=== PATIENT | female | born 1965 | race Caucasian/White ===

== ENCOUNTER 2025-03-08 06:16 | Day surgery (SDC) | payer OTHER, SELFPAY ==
[2025-03-08] VITALS (7 sets, daily range): BP systolic 93–142; BP diastolic 63–92; BMI 30.8
[2025-03-08 07:00] LABS: Hematocrit 38.2 % (37.0-47.0); Hemoglobin 12.5 g/dL (12.0-16.0); Mean Corp Hgb Conc. 32.7 g/dL (33.0-37.0); Mean Corpuscular Volume 85.7 fL (81.0-99.0); Platelet Count 264 10^3/uL (130-400); Red Cell Dist. Width 13.8 % (11.5-14.5)
[2025-03-08 07:08] LABS: Glucose - Point of Care 88 mg/dl (70-99)
--- NOTE | 2025-03-08 07:08 | W.SUR.PREOP ---
Pre-Operative Surgical Note
-
I have examined this patient prior to the performance of the scheduled procedure.
The patient's condition is unchanged from the time of the current History and
Physical and the patient is able to undergo the scheduled procedure.
[2025-03-08 07:17] LABS: INR 1.06; PT 14.3 Sec (11.4-14.6)
[2025-03-08] MEDS: NSS 500 IV (07:17)
[2025-03-08] MEDS: PERIDEX 0.12% ORAL RINSE 15 ML PO (07:17)
[2025-03-08] MEDS: BACTROBAN NASAL 1 GRAM NASAL (07:17)
[2025-03-08 07:18] LABS: APTT 26.1 Sec (23.4-35.0)
[2025-03-08 07:23] LABS: Blood Urea Nitrogen 28 mg/dl (7-17); Calcium 9.6 mg/dl (8.4-10.2); Carbon Dioxide 32 mmol/L (22-30); Chloride 103 mmol/L (98-107); Estimated Creatinine Clearance 56 ml/min; Glucose 97 mg/dl (70-99); Potassium 3.9 mmol/L (3.5-5.1); Sodium 137 mmol/L (135-145); eGFR > 60.00
--- NOTE | 2025-03-08 08:17 | OR.RPT ---
Operative Report
Operative Report
PROCEDURE DATE: 03/08/2025
Preoperative diagnosis: Temporal arteritis
Postoperative diagnosis: Same
Procedure: Bilateral superficial temporal artery biopsies.
Surgeon: Edwin
N[employer] Power [employer] Engineer: Letty, required for all aspects of procedure including assistance with traction/countertraction, assistance with closure.
Complications: None
Anesthesia: Local, sedation
Indications for procedure:
Concern for temporal arteritis. Referred for temporal artery biopsy. Risk/benefit/alternatives also discussed with the patient. She understood all wish to proceed.
Description of procedure:
Patient was identified brought to the operating room placed on the table in supine position. After the adequate administration of anesthesia and perioperative antibiotics she was prepped and draped in the standard surgical fashion. A standard
preoperative timeout was undertaken and everybody was in agreement the plan. A longitudinal incision was made in the scalp just anterior and superior to the superiormost aspect of the pinna of the right ear (overlying the palpable pulsation of the
artery) after infiltration of the skin and subcutaneous tissue with 1% lidocaine. This was carried down through the subcutaneous layer and the fascia layer with electrocautery. The superficial temporal artery was identified. It was mobilized
using sharp dissection. It was then ligated proximally and distally as well as a branch ligated all with silk ties and a clip (silk ties and clips for proximal/distal artery, and clip for branch). I then transected the artery. This was then sent
for specimen. No gross overt inflammation or thickening was noted in the artery.
A similar incision was made in the left scalp just anterior and superior to the superiormost aspect of the pinna of the left ear (overlying the palpable pulsation of the artery) after infiltration of the skin and subcutaneous tissue with 1%
lidocaine. Similarly this was carried down through the subcutaneous tissue and fascial layer with the electrocautery. The superficial temporal artery was identified and was mobilized using sharp dissection. It was then ligated proximally and
distally as well as a branch ligated all with silk ties and a clip (silk ties and clips for proximal/distal artery, and clip for branch). I then transected the artery. This was then sent for specimen. No gross overt inflammation or thickening was
noted in the artery.
Both incision sites were then irrigated. Hemostasis was achieved and confirmed. We then closed in layers using 3-0 Vicryl deep dermal layer followed by 4-0 Monocryl subcuticular running layer (this was completed bilaterally). Dermabond was then
applied bilaterally. Patient tolerated procedure well.
--- NOTE | 2025-03-08 08:18 | W.SUR.POST ---
Surgical Immediate Post Op
Note
Pre Op Diagnosis: Rule out giant cell arteritis
Post Op Diagnosis: Rule out giant cell arteritis
Procedure Performed: Bilateral temporal artery biopsy
Primary Surgeon: Alfredo Pineda M.D.
occupational therapist's assistant: KRISTA Stephens
Anesthesia: MAC
Estimated Blood Loss: 2 mL
Fluids: See anesthesia flowchart
Drains/Shunts: N/A
Specimens/Cultures: Bilateral temporal artery
Doppler/Duplex/Angio (Y/N): Y, Doppler
Complications: None
Operative Findings: Successful biopsy of bilateral temporal artery
[2025-03-08 08:26] LABS: Glucose - Point of Care 87 mg/dl (70-99)
[2025-03-08] MEDS: TYLENOL 650 MG PO (09:54)
== END 2025-03-08 10:05 | disposition home or self-care (01) ==
LOC: CATH 06:16
PROVIDERS: ATTENDING PHYSICIAN Surgery Vascular Surgery; FAMILY PHYSICIAN Internal Medicine
DX: M31.6 Other giant cell arteritis (principal); I10 Essential (primary) hypertension; E11.9 Type 2 diabetes mellitus without complications; E78.00 Pure hypercholesterolemia, unspecified; Z79.899 Other long term (current) drug therapy; Z79.52 Long term (current) use of systemic steroids; Z79.85 Long-term (current) use of injectable non-insulin antidiabetic drugs
CPT/HCPCS: 37609; 80048; 82962; 85027; 85610; 85730; 86850; 86900; 86901; 88305; 88313; 93005